=== PATIENT | female | born 1985 | race Caucasian/White ===

== ENCOUNTER 2018-01-16 17:22 | Emergency (ER) | payer MEDICAID ==
[~2018-01-16] VITALS: Ht 157.5 cm; Wt 80.2 kg
[~2018-01-16 17:22] MED LIST: ARIP5TAB13 PO; BIRTH CONTROL; DULO30CA2 PO; GABA-826 PO; IBUP-1222 PO; PREN1TAB62 PO; QUET50TA8 PO; ZOLP-413 PO
[2018-01-16 18:03] LABS: BASOPHILS # (AUTO) 0.08 x10^3/uL (0-0.1); BASOPHILS % (AUTO) 1 % (0-1); EOSINOPHILS # (AUTO) 0.07 x10^3/uL (0-0.4); EOSINOPHILS % (AUTO) 1 % (1-7); LYMPHOCYTES # (AUTO) 2.41 x10^3/uL (1-3.4); LYMPHOCYTES % (AUTO) 23 % (22-44); MD NO; MEAN CORPUSCULAR HEMOGLOBIN 32.1 pg (27.0-34.8); MEAN CORPUSCULAR HGB CONC 34.3 g/dL (32.4-35.8); MEAN CORPUSCULAR VOLUME 93.4 fL (80-100); MEAN PLATELET VOLUME 7.6 fL (7.4-10.4); MONOCYTES # (AUTO) 0.67 x10^3/uL (0.2-0.8); MONOCYTES % (AUTO) 7 % (2-9); NEUTROPHILS % (AUTO) 69 % (42-75); PLATELET COUNT 293 x10^3/uL (130-400); RED CELL DISTRIBUTION WIDTH 12.8 % (9.6-15.2)
[2018-01-16 18:14] LABS: ALBUMIN 3.9 g/dL (3.4-5.0); ANION GAP 7 mmol/L (5-15); CALCIUM 9.6 mg/dL (8.5-10.1); CHLORIDE 110 mmol/L (98-107); CREATININE 0.81 mg/dL (0.55-1.02)
[2018-01-16] MEDS ORDERED: ONDANSETRON ODT 4 MG PO ONE (18:30)
[2018-01-16] MEDS ORDERED: MECLIZINE CHEWABLE 25 MG TAB PO ONE (18:30)
[2018-01-16] MEDS ORDERED: ONDANSETRON ODT 4 MG ONE (18:36)
[2018-01-16] MEDS ORDERED: MECLIZINE CHEWABLE 25 MG TAB ONE (18:36)
[2018-01-16 18:38] VITALS: BP 128/78
== END 2018-01-16 19:28 | disposition home or self-care (01) ==
LOC: ED 18:58
DX: H81.12 Benign paroxysmal vertigo, left ear (principal); F31.9 Bipolar disorder, unspecified; F17.200 Nicotine dependence, unspecified, uncomplicated; Z90.49 Acquired absence of other specified parts of digestive tract; Z90.89 Acquired absence of other organs; Z88.6 Allergy status to analgesic agent; Z88.5 Allergy status to narcotic agent
CPT/HCPCS: 36415; 80048; 82040; 84703; 85025; 93005; 99285; Q0162

== ENCOUNTER 2018-05-29 15:55 | Emergency (ER) | payer MEDICAID ==
[~2018-05-29] VITALS: Ht 157.5 cm; Wt 85.2 kg
[2018-05-29] MEDS ORDERED: METOCLOPRAMIDE 5 MG/ML, 2ML IVPush ONE (16:30)
[2018-05-29] MEDS ORDERED: SODIUM CHLORIDE FLUSH 10ML SYR IVF ONE (16:30)
[2018-05-29] MEDS ORDERED: DIPHENHYDRAMINE 50 MG/ML, 1ML IVPush ONE (16:30)
--- NOTE | 2018-05-29 16:57 | NUR ---
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
--- NOTE | 2018-05-29 17:05 | NUR ---
Assumed care of patient. C/O migraine with photophobia. Took Imitrex at home with no relief. Placed on NBIP, pulse ox and night monitor. Will continue to monitor.
[2018-05-29] MEDS ORDERED: METOCLOPRAMIDE 5 MG/ML, 2ML ONE (17:11)
[2018-05-29] MEDS ORDERED: DIPHENHYDRAMINE 50 MG/ML, 1ML ONE (17:11)
[2018-05-29] MEDS ORDERED: KETOROLAC 30 MG/1 ML ONE (17:57)
[2018-05-29] MEDS ORDERED: ACETAMINOPHEN 325 MG TABLET ONE (17:57)
[2018-05-29] MEDS ORDERED: KETOROLAC 30 MG/1 ML IVPush ONE (18:00)
[2018-05-29] MEDS ORDERED: ACETAMINOPHEN 325 MG TABLET PO ONE (18:00)
--- NOTE | 2018-05-29 18:35 | NUR ---
Patient reports resolution of migraine symptoms.
[2018-05-29 19:06] VITALS: BP 129/78
--- NOTE | 2018-05-29 19:06 | NUR ---
Patient/Caregiver given discharge instructions and they have confirmed that they understand the instructions. Patient ambulatory with steady gait.
== END 2018-05-29 19:07 | disposition home or self-care (01) ==
LOC: ED 18:39
DX: G43.009 Migraine without aura, not intractable, without status migrainosus (principal); F31.9 Bipolar disorder, unspecified; Z90.89 Acquired absence of other organs; Z90.49 Acquired absence of other specified parts of digestive tract
CPT/HCPCS: 96374; 96375; 99283; J1200; J2765